=== PATIENT | female | born 1990 | race Caucasian/White ===

== ENCOUNTER 2016-03-06 10:22 | Emergency (ER) | payer MEDICAID ==
[2016-03-06 11:32] LABS: BASOPHILS 0.5 % (0.0-2.0); EOSINOPHILS 8.9 % (0-7); HEMATOCRIT 35.3 % (36.0-48.0); HEMOGLOBIN 11.1 g/dL (12-16); IMMATURE GRANULOCYTES 0.2 % (0-5); LYMPHOCYTES 25.7 % (15-50); MCH 23.2 pg (26.0-34.0); MCHC 31.4 g/dL (31.0-37.0); MCV 73.8 fL (80.0-100.0); MEAN PLATELET VOLUME 9.5 fL (7.4-10.4); MONOCYTES 5.7 % (2-11); PLATELET COUNT 284 10x3/uL (130-400); RBC 4.78 10x6/uL (4.00-5.40); RDW 15.6 % (11.5-14.5); WBC 9.9 10x3/uL (4.8-10.8)
[2016-03-06 11:35] LABS: APPEARANCE HAZY (CLEAR); COLOR YELLOW (YELLOW)
[2016-03-06 11:36] LABS: BILIRUBIN NEGATIVE (NEGATIVE); GLUCOSE NEGATIVE (NEGATIVE); KETONE NEGATIVE (NEGATIVE); LEUKOCYTE ESTERASE 1+ (NEGATIVE); NITRITE NEGATIVE (NEGATIVE); PROTEIN NEGATIVE (NEGATIVE); SPECIFIC GRAVITY 1.015 (1.005-1.020); UROBILINOGEN NORMAL (NORMAL)
[2016-03-06 11:38] LABS: AMORPHOUS SEDIMENT <1+ /lpf (NONE SEEN); BACTERIA MODERATE /hpf (NONE SEEN); MUCUS <1+ /lpf (NONE SEEN); RED CELLS - URINE 0-5 /hpf (0-5)
[2016-03-06 11:42] LABS: HCG SERUM NEGATIVE (NEGATIVE)
[2016-03-06 11:47] LABS: ALBUMIN 3.5 g/dL (3.4-5.0); ALKALINE PHOSPHATASE 44 U/L (46-116); ALT (SGPT) 22 U/L (10-68); AMYLASE - SERUM 45 U/L (25-115); CALC OSMOLALITY 277 mosm/kg (275-300); CALCIUM 8.7 mg/dL (8.5-10.1); CARBON DIOXIDE 28.4 mmol/L (21.0-32.0); CHLORIDE - SERUM 104 mmol/L (98-107); CREATININE - SERUM 0.7 mg/dL (0.6-1.3); GLUCOSE 93 mg/dL (74-106); LIPASE 128 U/L (73-393); POTASSIUM - SERUM 3.8 mmol/L (3.5-5.1); PROTEIN - SERUM 7.1 g/dL (6.4-8.2); SODIUM 140 mmol/L (136-145); UREA NITROGEN 11 mg/dL (7-18); eGFR NON AFRICAN AMERICAN > 90 mL/min (90-120)
== END 2016-03-06 12:46 | disposition home or self-care (01) ==
LOC: D.ER 10:22
PROVIDERS: Emergency Medicine
DX: N39.0 Urinary tract infection, site not specified (principal); R11.10 Vomiting, unspecified; K21.9 Gastro-esophageal reflux disease without esophagitis

== ENCOUNTER 2016-10-13 01:26 | Emergency (ER) | payer MEDICAID ==
[2016-10-13 02:16] LABS: BASOPHILS 0.4 % (0-2); EOSINOPHILS 4.8 % (0-7); IMMATURE GRANULOCYTES 0.2 % (0-5); LYMPHOCYTES 41.8 % (15-50); MCH 23.7 pg (26.0-34.0); MCHC 32.4 g/dL (31.0-37.0); MCV 73.1 fL (80.0-100.0); MEAN PLATELET VOLUME 9.1 fL (7.4-10.4); MONOCYTES 5.6 % (2-11); NEUTROPHILS 47.2 % (40-80); PLATELET COUNT 301 10x3/uL (130-400); RBC 4.65 10x6/uL (4.00-5.40); RDW 16.7 % (11.5-14.5); WBC 9.4 10x3/uL (4.8-10.8)
[2016-10-13 02:17] LABS: APPEARANCE CLEAR (CLEAR); BILIRUBIN NEGATIVE (NEGATIVE); COLOR YELLOW (YELLOW); GLUCOSE NEGATIVE (NEGATIVE); KETONE NEGATIVE (NEGATIVE); LEUKOCYTE ESTERASE NEGATIVE (NEGATIVE); NITRITE NEGATIVE (NEGATIVE); PROTEIN NEGATIVE (NEGATIVE); UROBILINOGEN NORMAL (NORMAL)
[2016-10-13 02:22] LABS: UDS - AMPHET NEGATIVE QUAL (NEGATIVE); UDS - BARB NEGATIVE QUAL (NEGATIVE); UDS - BENZO NEGATIVE QUAL (NEGATIVE); UDS - COCAINE NEGATIVE QUAL (NEGATIVE); UDS - METH NEGATIVE QUAL (NEGATIVE); UDS - OPIATE NEGATIVE QUAL (NEGATIVE); UDS - PCP NEGATIVE QUAL (NEGATIVE); UDS - THC NEGATIVE QUAL (NEGATIVE)
[2016-10-13 02:31] LABS: ALBUMIN 3.6 g/dL (3.4-5.0); ALKALINE PHOSPHATASE 49 U/L (46-116); ALT (SGPT) 24 U/L (10-68); AMYLASE - SERUM 50 U/L (25-115); BILIRUBIN - TOTAL 0.11 mg/dL (0.2-1.3); CALC OSMOLALITY 276 mosm/kg (275-300); CALCIUM 8.7 mg/dL (8.5-10.1); CARBON DIOXIDE 26.4 mmol/L (21.0-32.0); CHLORIDE - SERUM 103 mmol/L (98-107); CREATININE - SERUM 0.8 mg/dL (0.6-1.3); GLUCOSE 105 mg/dL (74-106); LIPASE 187 U/L (73-393); POTASSIUM - SERUM 3.5 mmol/L (3.5-5.1); PROTEIN - SERUM 7.3 g/dL (6.4-8.2); SODIUM 139 mmol/L (136-145); UREA NITROGEN 9 mg/dL (7-18); eGFR NON AFRICAN AMERICAN > 90 mL/min (90-120)
[2016-10-13 02:44] LABS: HCG SERUM NEGATIVE (NEGATIVE)
== END 2016-10-13 03:48 | disposition home or self-care (01) ==
LOC: D.ER 01:26
PROVIDERS: Family Medicine
DX: R10.13 Epigastric pain (principal); K21.9 Gastro-esophageal reflux disease without esophagitis; R53.83 Other fatigue; F17.200 Nicotine dependence, unspecified, uncomplicated